=== PATIENT | female | born 1970 | race Caucasian/White ===

== ENCOUNTER → 2016-07-20 | Outpatient (CLI) | payer BC ==
[~2016-07-20] MED LIST: HCTZ PO; IBUPROFEN800 MG PO; PRAVASTATIN SOD10 MG PO; PRILOSEC PO; TIZANIDINE HCL4 M1 PO; TRAMADOL HCL50 M1 PO; VOLTAREN75 MG PO; ZYRTEC10 M1 PO
--- NOTE | ~2016-07-20 | MY11 ---
[facility] A Service of [facility] RADIOLOGY TEXT RESULTS PATIENT: ANDREW PACK LOCATION: [facility] : 66 UNIT #: [id number] AGE: [address]: JIMBO CHANG APRN SEX: F ORDER DR: [id number] [facility] [address]. [place], [place] [address] [id number] O MR#: [id number] Acc #: [id number] NAME: ANDREW PACK : 1970 SEX: F STUDY DATE/TIME: 07/20/2016 12:30 UNIT: [facility] ROOM: STUDY DESCRIPTION: MY Mammogram Screening Dig Steve Attending Physician: Jimbo Chang A.P.R.N. Referring Physician: Jimbo Chang A.P.R.N. Ordering Physician: Jimbo Chang A.P.R.N. Primary Care Physician: Jimbo Chang A.P.R.N. MEDICAL IMAGING REPORT This report is preliminary unless electronic signature is present EXAM Digital screening mammogram, 07/20/2016 HISTORY 46-year-old woman no risk elevation. Annual screening. COMPARISON Mammograms date to 05/15/2010 with most recent screening comparison 07/18/2015. FINDINGS Digital imaging of each breast was completed utilizing screening protocol. Review includes FDA-approved CAD device. Breast parenchyma is heterogeneous and stable. I see no suspicious mass characteristics. There are no interval occurring microcalcifications and no architectural deformity. IMPRESSION Negative mammogram. Annual screening recommended. Patients over the age of 40 are entered into a reminder system with target due date for the next mammogram. A result letter will also be sent to the patient. BIRADS: 1 Negative Dictated by... Jimmy Nino M.D. THIS IS AN ELECTRONICALLY VERIFIED REPORT Jimmy Nino M.D. at 07/20/2016 4:00 PM Jamee [facility] A Service of [facility] RADIOLOGY TEXT RESULTS PATIENT: ANDREW PACK LOCATION: [facility] : 66 UNIT #: [id number] AGE: [address]: JIMBO CHANG APRN SEX: F ORDER DR: TD: 07/20/2016 15:33 JOB #: [id number] MEDICAL IMAGING REPORT Page 1 of 1 COPY
--- NOTE | ~2016-07-20 | CR55 ---
[facility] A Service of [facility] & [facility] RADIOLOGY TEXT RESULTS PATIENT: ANDREW PACK LOCATION: [facility] : 66 UNIT #: [id number] AGE: [address]: MIGNON CHANG APRN SEX: F ORDER DR: [id number] [facility] [address] [place], [place] [address] [id number] O MR#: [id number] Acc #: [id number] NAME: ANDREW PACK : 1970 SEX: F STUDY DATE/TIME: 07/20/2016 11:55 UNIT: [facility] ROOM: STUDY DESCRIPTION: CR Calcaneus Min 2 Views Lt Attending Physician: Mignon Chang Referring Physician: Mignon Chang Ordering Physician: Mignon Chang A.P.R.N. Primary Care Physician: Mignon Chang MEDICAL IMAGING REPORT This report is preliminary unless electronic signature is present EXAM Left calcaneus 07/20/2016 HISTORY 46-year-old female with left calcaneus pain for a couple of months. No specific injury. COMPARISON: None. FINDINGS Two views of the left calcaneus demonstrate no acute fracture. Small plantar calcaneal spur. Mild ossification at the Achilles tendon insertion. Mild midfoot arthrosis. IMPRESSION 1. No acute fracture. 2. Small plantar calcaneal spur. 3. Mild ossification at the Achilles tendon insertion. Dictated by... Marty Francisco M.D. THIS IS AN ELECTRONICALLY VERIFIED REPORT Marty Francisco M.D. at 07/21/2016 2:29 PM BOBBI/dmitry TD: 07/21/2016 12:05 JOB #: [id number] MEDICAL IMAGING REPORT Page 1 of 1 COPY
== END | disposition home or self-care (01) ==
LOC: CWCC 11:22
DX: Z12.31 Encounter for screening mammogram for malignant neoplasm of breast (principal); M76.62 Achilles tendinitis, left leg; M77.32 Calcaneal spur, left foot
CPT/HCPCS: 73650; G0202

== ENCOUNTER 2016-09-08 05:44 | Emergency (ER) | payer BC ==
[~2016-09-08] VITALS: Ht 165.1 cm; Wt 93.9 kg
--- NOTE | ~2016-09-08 | US85 ---
[facility] A Service of [facility] & [facility] RADIOLOGY TEXT RESULTS PATIENT: ANDREW PACK LOCATION: [facility] : 66 UNIT #: [id number] AGE: [address]: Tyson Glass MD SEX: F ORDER DR: [id number] [facility] [address] [place], [place] [address] [id number] E MR#: [id number] Acc #: [id number] NAME: ANDREW PACK. : 1970 SEX: F STUDY DATE/TIME: 09/08/2016 8:40 UNIT: [facility] ROOM: STUDY DESCRIPTION: US LE Veins Unilat or Ltd Stdy Attending Physician: Tyson Glass M.D. Ordering Physician: Tyson Glass M.D. Primary Care Physician: Last Etienne.P.RNinaNNina MEDICAL IMAGING REPORT This report is preliminary unless electronic signature is present EXAM Ultrasound lower extremity veins, {unilat or Ltd Stdy} HISTORY Pain right leg from knee down one week. TECHNIQUE Venous ultrasound examination of the right lower extremity was performed using grayscale, spectral Doppler and color flow Doppler imaging. FINDINGS The examination is negative. There is no evidence of right lower extremity deep venous thrombus from the groin to the lower calf. Visualized greater saphenous vein is also patent. IMPRESSION Negative examination. No evidence of right lower extremity deep venous thrombosis. Dictated by... Cole Pedersen M.D. THIS IS AN ELECTRONICALLY VERIFIED REPORT Cole Pedersen M.D. at 09/08/2016 6:44 PM Anna TD: 09/08/2016 14:59 JOB #: [id number] MEDICAL IMAGING REPORT Page 1 of 1 COPY
[~2016-09-08 05:44] MED LIST changes: -HCTZ PO; -IBUPROFEN800 MG PO; -PRAVASTATIN SOD10 MG PO; -PRILOSEC PO; -TIZANIDINE HCL4 M1 PO; -VOLTAREN75 MG PO; -ZYRTEC10 M1 PO
[2016-09-08 06:58] LABS: BASOPHIL# 0.1 X10e3 (0-0.3); BASOPHIL% 0.7 % (0-2.5); EOSINOPHIL# 0.2 X10e3 (0-0.7); EOSINOPHIL% 2.3 % (0.0-7.0); HEMATOCRIT 43.7 % (35.0-45.0); HEMOGLOBIN 14.4 gm/dL (12.0-16.0); LYMPHOCYTE# 2.4 X10e3 (1.0-3.5); LYMPHOCYTE% 32.3 % (17.0-45.0); MEAN CELL VOLUME 86.4 FL (83-96); MEAN CORPUSCULAR HEMOGLOBIN 28.4 PG (28-34); MEAN CORPUSCULAR HGB CONC 32.9 g/dL (30-36); MEAN PLATELET VOLUME 9.3 FL (6.5-11.5); MONOCYTE# 0.4 X10e3 (0-1.0); MONOCYTE% 5.1 % (3.0-12.0); NEUTROPHIL# 4.5 X10e3 (1.5-7.1); NEUTROPHIL% 59.6 % (40-75); PLATELET COUNT 238 X10e3 (140-420); RED BLOOD COUNT 5.06 X10e (3.90-5.30); RED CELL DISTRIBUTION WIDTH 14.2 % (11.0-15.5); WHITE BLOOD COUNT 7.6 X10e3 (4.0-10.5)
[2016-09-08 07:11] LABS: DIFF IND NO
[2016-09-08 07:17] LABS: PROTHROMBIN TIME (PATIENT) 10.9 SECONDS (10.0-11.7)
[2016-10-20] MEDS ORDERED: PRILOSEC PO (06:04)
[2016-10-20] MEDS ORDERED: IBUPROFEN800 MG PO (06:04)
[2016-10-20] MEDS ORDERED: PRAVASTATIN SOD10 MG PO (06:04)
[2016-10-20] MEDS ORDERED: HCTZ PO (06:04)
[2016-10-20] MEDS ORDERED: TIZANIDINE HCL4 M1 PO (11:40)
[2016-10-20] MEDS ORDERED: VOLTAREN75 MG PO (11:40)
[2016-10-20] MEDS ORDERED: ZYRTEC10 M1 PO (11:41)
== END 2016-09-08 10:57 | disposition home or self-care (01) ==
LOC: CED 05:44
PROVIDERS: Emergency Medicine
DX: M79.661 Pain in right lower leg (principal); I10 Essential (primary) hypertension; Z88.2 Allergy status to sulfonamides; Z88.5 Allergy status to narcotic agent; Z88.8 Allergy status to other drugs, medicaments and biological substances; Z79.899 Other long term (current) drug therapy
CPT/HCPCS: 85025; 85610; 93971; 96372; 99284; J1885

== ENCOUNTER → 2016-09-18 | Outpatient (CLI) | payer BC ==
[~2016-09-18] MED LIST changes: +HCTZ PO; +IBUPROFEN800 MG PO; +PRAVASTATIN SOD10 MG PO; +PRILOSEC PO; +TIZANIDINE HCL4 M1 PO; +VOLTAREN75 MG PO; +ZYRTEC10 M1 PO
--- NOTE | ~2016-09-18 | MR104 ---
[facility] A Service of [facility] & [facility] RADIOLOGY TEXT RESULTS PATIENT: ANDREW PACK JUNE LOCATION: [facility] : 66 UNIT #: [id number] AGE: [address]: LENORA EDWARDS PA-C SEX: F ORDER DR: [id number] [id number] [facility]. [place], [place] [address] [id number] O MR#: [id number] Acc #: [id number] NAME: ANDREW PACK : 1970 SEX: F STUDY DATE/TIME: 09/18/2016 7:34 UNIT: [facility] ROOM: STUDY DESCRIPTION: MR Knee Wo Contrast Rt Attending Physician: Lenora Edwards Pa-C Referring Physician: Lenora Edwards Pa-C Ordering Physician: Staff Doctor Not On Primary Care Physician: Generic Doctor Not In System MRI CENTER REPORT This report is preliminary unless electronic signature is present. EXAM MRI of the right knee 09/18/2016 COMPARISON Right knee radiographs 09/10/2016. FINDINGS There is a small effusion and a small popliteal cyst measuring 4.2 cm in length. There is a surrounding inflammation related to the popliteal cyst as well as inflammation along the pes anserine bursal tendons. Inflammation also extends caudally superficial to the medial gastrocnemius muscle. Patellofemoral alignment is normal. There is mild joint space narrowing. There is grade 4 chondromalacia with subarticular marrow edema and subchondral bone plate irregularity corresponding with radiographic lucency. Quadriceps and patellar tendons are intact. Femoral trochlear and articular cartilage is unremarkable. Cruciate ligaments are normal. The lateral meniscus, lateral collateral ligament complex, and popliteus tendon are intact. Articular cartilage of the lateral compartment is normal. There is a deep radial tear in the posterior body of the medial meniscus without a displaced flap or fragment. Reactive inflammation is noted along the posterior body meniscocapsular junction and within the MCL bursa. The MCL is intact. There is subtle minimal chondromalacia (lkp-sd-tudkjvpg grade) of the medial compartment with minimal underlying marrow edema. There is no marrow lesion, fracture, or loose body. STS. [facility] A Service of [facility] & [facility] RADIOLOGY TEXT RESULTS PATIENT: ANDREW PACK LOCATION: [facility] : 66 UNIT #: [id number] AGE: [address]: LENORA EDWARDS PA-C SEX: F ORDER DR: IMPRESSION 1. The predominant abnormality is a deep radial tear in the posterior body of the medial meniscus. 2. Minimal medial compartment weightbearing chondromalacia. 3. High-grade chondromalacia patella. 4. Small effusion and small popliteal cyst. 5. Deep posteromedial soft tissue edema likely reactive to the meniscus tear in the region of the meniscocapsular junction and pes anserine bursa. Dictated by... Reanna Maradiaga M.D. THIS IS AN ELECTRONICALLY VERIFIED REPORT Reanna Maradiaga M.D. at 09/21/2016 2:14 PM KERRY/yenifer TD: 09/21/2016 11:33 JOB #: [id number] MRI CENTER REPORT Page 1 of 1 COPY
== END | disposition home or self-care (01) ==
LOC: CMRI 06:51
DX: M25.561 Pain in right knee (principal); M22.41 Chondromalacia patellae, right knee; M25.461 Effusion, right knee; M71.21 Synovial cyst of popliteal space [Baker], right knee
CPT/HCPCS: 73721

== ENCOUNTER → 2016-10-07 | Outpatient (CLI) | payer BC ==
--- NOTE | ~2016-10-07 | EKG ---
PATIENT: ANDREW PACK UNIT #: [id number] Ventricular Rate: 95 BPM Atrial Rate: 95 BPM P-R Interval: 160 ms QRS Duration: 88 ms Q-T Interval: 372 ms QTC Calculation(Bezet): 467 ms P Canyon: 51 degrees Calculated R Canyon: 13 degrees Calculated T Canyon: 12 degrees Diagnosis Line: Normal sinus rhythm Diagnosis Line: Normal ECG Diagnosis Line: When compared with ECG of 09-MAY-2013 07:34, Diagnosis Line: No significant change was found Diagnosis Line: Confirmed by TOBIAS DE LA ROSA MD ([id number]) on 10/08/2016 Diagnosis Line: 10:19:59 PM INTERPRETING MD: RJ VILLALOBOS
[2016-10-07 13:17] LABS: CALCIUM SERUM 9.2 mg/dL (8.4-10.2); CREATININE SERUM 0.5 mg/dL (0.6-1.4); GLOM FILT RATE Estimated 114.5 mL/min (>60); POTASSIUM 3.3 mmol/L (3.5-5.1)
== END | disposition home or self-care (01) ==
LOC: CAMB 11:00
PROVIDERS: Orthopaedic Surgery
DX: Z01.818 Encounter for other preprocedural examination (principal); S83.241A Other tear of medial meniscus, current injury, right knee, initial encounter
CPT/HCPCS: 36415; 80048; 93005

== ENCOUNTER → 2016-10-20 | Day surgery (SDC) | payer BC ==
--- NOTE | ~2016-10-20 | HP ---
Unit #: [id number] #: [id number] Patient: ANDREW PACK JUNE [id number] [address] [place], [place] [address] [id number] O MR#: [id number] NAME: ANDREW PACK ROOM: Age: Sex: F Admission Date: 10/20/2016 : 1970 Attending Physician: Erickson Gutierrez M.D. Primary Care Physician: [facility]. HISTORY AND PHYSICAL CHIEF COMPLAINT Right knee pain. HISTORY OF PRESENT ILLNESS This 46-year-old female has chronic right medial joint line pain. Her knee pain has been present for several months and has not responded to conservative care. MRI documents a posterior horn medial meniscal tear, medial grade 2 chondromalacia, high grade chondromalacia of the patella, and a small popliteal cyst. The patient is therefore admitted for right knee arthroscopic partial medial meniscectomy. PAST MEDICAL HISTORY Past medical history is remarkable for hypertension and hypercholesterolemia. HOME MEDICATIONS 1. Hydrochlorothiazide. 2. Ibuprofen. 3. Omeprazole. 4. Pravastatin. ALLERGIES Claritin D and sulfa. PAST SURGICAL HISTORY Hysterectomy. SOCIAL HISTORY The patient is a social drinker. She smokes one pack per day. FAMILY HISTORY Remarkable for arthritis. REVIEW OF SYSTEMS Review of systems is remarkable only for knee pain as well as Achilles pain. PHYSICAL EXAMINATION GENERAL: In general, this is a well developed, well nourished female in no acute distress. PHARYNX: Pharynx is clear. NECK: The neck is supple without masses. HEART: Heart exam reveals a regular sinus rhythm without murmurs or gallops. Unit #: [id number] #: [id number] Patient: ANDREW PACK LUNGS: The lungs are clear. ABDOMEN: The abdomen is soft and nontender without masses or organomegaly. Evaluation of the right knee demonstrates normal alignment. Range of motion is full. She has a small effusion. The patient is point tender to palpation in the medial joint line. Medial and lateral collateral ligaments are stable. Jessica's test is negative. Pivot shift test is negative. Posterior tibial sag test is negative. Patellar compression test is positive. Standing x-rays of the right knee are normal. MRI shows a posterior horn medial meniscal tear. ADMITTING DIAGNOSIS Symptomatic right knee medial meniscal tear. PLAN The patient is admitted for right knee arthroscopic partial medial meniscectomy. This procedure was described along with risks of bleeding, infection, nerve damage, need for further surgery in the future, worsening arthritis in the future necessitating further surgery, deep venous thrombosis, pulmonary embolism, and anesthetic complications. The patient understands the above risks and agrees to proceed. Dictated by Pratik Stephens/maximiliano TD: 10/19/2016 18:43 JOB #: [id number] HISTORY AND PHYSICAL Page 1 of 1 X Jimy Gutierrez MD X HISTORY AND PHYSICAL
--- NOTE | ~2016-10-20 | OR ---
Unit #: [id number] #: [id number] Patient: ANDREW PACK JUNE [id number] [address] [place], [place] [address] [id number] O MR#: [id number] NAME: ANDREW PACK JUNE ROOM: Date of Procedure: 10/20/2016 Admission Date: 10/20/2016 Surgeon: Erickson Gutierrez M.D. : 1970 Attending Physician: Erickson Gutierrez M.D. Primary Care Physician: [facility] OPERATIVE REPORT PREOPERATIVE DIAGNOSIS Right knee medial meniscal tear. POSTOPERATIVE DIAGNOSES 1. Right knee medial meniscal tear. 2. 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 PROCEDURE PERFORMED Right knee arthroscopic partial medial meniscectomy (90953). [employer] [place]. ANESTHESIA General. INDICATIONS FOR SURGERY The patient is a 46-year-old female with progressive anteromedial knee pain. She has pain primarily in the medial joint line. Collateral ligaments are stable. She has failed to respond to conservative care to include anti-inflammatory medication and physical therapy. MRI documents a radial tear of the posterior horn of the medial meniscus. DESCRIPTION OF PROCEDURE The patient was taken to the operating room and placed in supine position and general anesthetic was induced. Examination of the right knee under anesthesia demonstrated medial and lateral collateral ligaments to be stable. Anterior drawer was negative. Pivot shift test was negative. Posterior cruciate ligament was stable. A pneumatic tourniquet was then applied to the right leg and the right leg was placed in an arthroscopic leg song. A time-out procedure was performed prior to putting the patient in the leg song, and this identified the right knee as the correct operative location during the time-out procedure. The IV antibiotic protocol was followed. The right knee was then prepped and draped in usual sterile fashion. The leg was exsanguinated and the thigh tourniquet inflated to 300 mmHg. A 4-mm diameter 30-degree arthroscope was placed in a standard anterolateral portal and anteromedial portal was established using an outside-in technique. Examination of patellofemoral joint demonstrated grade 3 chondromalacia of the patellar apex. This was smoothed with the arthroscopic full-radius shaver. The medial and lateral gutters were free Unit #: [id number] #: [id number] Patient: ANDREW PACK of all loose bodies. The scope was then manipulated into the medial compartment. There was an obvious radial tear of the posterior horn of the medial meniscus. This was removed by using the full-radius shaver to remove the tear and to smooth the remaining meniscal rim. The remainder of the meniscus was normal. There was also grade 3 chondromalacia changes of the under surface of the weightbearing portion of the medial femoral condyle. A chondroplasty was not performed in this area. The tibial cartilage appeared normal. The scope was manipulated into the intercondylar notch. There was marked synovitis and this was removed with the full-radius shaver. The anterior and posterior cruciate ligaments appeared stable. Due to excessive bleeding in the joint, we used intraoperative electrocautery to cauterize some of the ligamentum mucosum vessels which were bleeding and preventing visualization. The knee was placed in a [id number] position. The scope was placed in the lateral compartment. The articular cartilage of the lateral compartment appeared normal. The lateral meniscus appeared normal. There was no evidence of tear. The meniscus was probed and was found to be completely stable. All arthroscopic instruments were then removed from the knee. The knee was injected with 20 mL of 0.5% plain Marcaine. The incisions were closed with 3-0 nylon simple sutures. Xeroform gauze, dressing, sponges, Webril, and Kwadwo wrap were applied. The patient was then transported to the recovery room in stable condition. ESTIMATED BLOOD LOSS Minimal. COMPLICATIONS None. SPECIMENS None. TOURNIQUET TIME 45 minutes. Dictated byPratik Ruby/becky TD: 10/20/2016 13:00 JOB #: [id number] Unit #: [id number] #: [id number] Patient: ANDREW PACK OPERATIVE REPORT Page 1 of 1 X Jimy Gutierrez MD X PROCEDURE OPERATIVE NOTE
== END | disposition home or self-care (01) ==
LOC: CSUR 05:49
DX: M23.221 Derangement of posterior horn of medial meniscus due to old tear or injury, right knee (principal); M22.41 Chondromalacia patellae, right knee; G89.29 Other chronic pain; I10 Essential (primary) hypertension; E78.00 Pure hypercholesterolemia, unspecified; J44.9 Chronic obstructive pulmonary disease, unspecified; K21.9 Gastro-esophageal reflux disease without esophagitis; F17.210 Nicotine dependence, cigarettes, uncomplicated; Z88.2 Allergy status to sulfonamides; Z88.5 Allergy status to narcotic agent; Z79.1 Long term (current) use of non-steroidal anti-inflammatories (NSAID); Z79.899 Other long term (current) drug therapy; Z90.710 Acquired absence of both cervix and uterus
CPT/HCPCS: 84132; J0690; J2250; J2270; J2405; J2550; J3010